=== PATIENT | female | born 1980 | race Two or more races ===

== ENCOUNTER → 2016-07-14 | Outpatient (CLI) | payer MEDICAID ==
[~2016-07-14] MED LIST: DOCO200C3 PO; IBUP-1222 PO; LAMO150T3 PO; LEVE100020 PO; MAGN100T6 PO; SULF-187 PO
== END | disposition home or self-care (01) ==
LOC: CARD 13:33
PROVIDERS: ATTEND Psychiatry & Neurology Neurology
DX: G40.901 Epilepsy, unspecified, not intractable, with status epilepticus (principal); I10 Essential (primary) hypertension
CPT/HCPCS: 95819

== ENCOUNTER 2018-08-12 12:51 | Outpatient (CLI) | payer OTHER ==
[~2018-08-12 12:51] MED LIST changes: +SULF-16 PO; -SULF-187 PO
== END 2018-08-12 23:59 | disposition home or self-care (01) ==
LOC: CARD 12:51
PROVIDERS: ATTEND Psychiatry & Neurology Neurology
DX: G40.901 Epilepsy, unspecified, not intractable, with status epilepticus (principal)
CPT/HCPCS: 95819